=== PATIENT | female | born 1935 | race Hispanic/Latino ===

== ENCOUNTER 2020-08-26 17:30 | Emergency (ER) | payer OTHER, MEDICARE ==
[~2020-08-26] VITALS: Ht 157.5 cm; Wt 82.2 kg
[2020-08-26] MEDS ORDERED: ACETAMINOPHEN 325 MG TAB PO ONE (18:00)
[2020-08-26] MEDS ORDERED: ACETAMINOPHEN500 MG PO (18:05)
[2020-08-26] MEDS ORDERED: ACETAMINOPHEN 325 MG TAB ONE (18:15)
[2020-08-26] MEDS ORDERED: MELOXICAM7.5 MG (18:22)
[2020-08-26] MEDS ORDERED: GABAPENTIN100 MG (18:22)
[2020-08-26] MEDS ORDERED: ATORVASTATIN CA20 MG (18:22)
[2020-08-26] MEDS ORDERED: TYLENOL # 31 EA (18:22)
[2020-08-26] MEDS ORDERED: AMLODIPINE BESY10 MG (18:22)
[2020-08-26] MEDS ORDERED: FUROSEMIDE40 MG (18:22)
[2020-08-26] MEDS ORDERED: ATENOLOL25 MG (18:22)
[2020-08-26] MEDS ORDERED: KLOR-CON 1010 MEQ (18:23)
[2020-08-26] MEDS ORDERED: AMIODARONE HCL200 MG PO (18:23)
[2020-08-26] MEDS ORDERED: FOLIC ACID0.4 MG PO (18:23)
[2020-08-26] MEDS ORDERED: LEVOTHYROXINE50 MCG PO (18:23)
[2020-08-26 20:17] VITALS: BP 124/72
== END 2020-08-26 20:18 | disposition home or self-care (01) ==
LOC: EDBD 17:30 → FSED 18:10
DX: S05.12XA Contusion of eyeball and orbital tissues, left eye, initial encounter (principal); W01.0XXA Fall on same level from slipping, tripping and stumbling without subsequent striking against object, initial encounter; Y93.01 Activity, walking, marching and hiking; Y92.008 Other place in unspecified non-institutional (private) residence as the place of occurrence of the external cause; I10 Essential (primary) hypertension
CPT/HCPCS: 70450; 70486; 99283